=== PATIENT | female | born 1930 | race Hispanic/Latino ===

== ENCOUNTER 2018-05-22 11:52 | Observation (INO) | payer MEDICARE ==
[~2018-05-22] VITALS: Ht 162.6 cm; Wt 72.3 kg
[~2018-05-22 11:52] MED LIST: ACET650T24 PO; ALBUHFA IH; FLUT1BLS IH; FURO20TA4 PO; LOSA1TAB37 PO; METO50TA18 PO; PRAV20TA4 PO; PREG50 PO; RIVA20TA PO; TRAM50TA4 PO
[2018-05-22 13:12] LABS: EOSINOPHILS % (AUTO) 2.4 % (0.0-8.0); HEMATOCRIT 39.8 % (36-48); LYMPHOCYTES % (AUTO) 15.4 % (21.0-51.0); MEAN CORPUSCULAR HEMOGLOBIN 28.4 pg (27.0-33.0); MEAN CORPUSCULAR VOLUME 88.8 fL (79-99); MONOCYTES % (AUTO) 8.9 % (3.0-13.0); NEUTROPHILS % (AUTO) 72.3 % (40.0-77.0); NUCLEATED RED BLOOD CELLS 0.1 % (0.0-0.19); PLATELET COUNT (AUTO) 251 K/uL (130-400); RED BLOOD CELL COUNT(AUTO) 4.48 MIL/uL (4.00-5.50); RED CELL DISTRIBUTION WIDTH 14.4 % (11.0-15.5); WHITE BLOOD COUNT (AUTO) 6.9 K/uL (4.8-10.8)
[2018-05-22 13:24] LABS: CREATININE 1.1 mg/dL (0.5-1.5); POTASSIUM 4.2 mmol/L (3.5-5.1)
[2018-05-22 13:28] LABS: ALBUMIN 3.3 g/dL (3.5-5.0); BILIRUBIN,TOTAL 0.4 mg/dL (0.2-1.0)
[2018-05-22] MEDS ORDERED: ASPIRIN 325 MG TABLET ONE (14:52)
[2018-05-22] MEDS ORDERED: SODIUM CHLORIDE 0.9% 10 ML VIAL IVP PRN (15:00)
[2018-05-22] MEDS ORDERED: TRAM50TA4 PO (15:31)
[2018-05-22] MEDS ORDERED: ESCI5TAB PO (15:31)
[2018-05-22] MEDS ORDERED: MELA1TAB28 PO (15:34)
[2018-05-22] MEDS ORDERED: FOLI1TAB15 PO (15:35)
[2018-05-22] MEDS ORDERED: BUSP5TAB3 PO (15:35)
[2018-05-22] MEDS ORDERED: ALBU2.5V2 IH (15:37)
[2018-05-22] MEDS ORDERED: DICL2100G TP (15:39)
[2018-05-22] MEDS ORDERED: ROPI0.257 PO (15:41)
[2018-05-22] MEDS ORDERED: DiphenhydrAMINE HCL 50 MG/ML VIAL IV PRN (16:00)
[2018-05-22] MEDS ORDERED: LACTULOSE 20 GM/30 ML UDCUP PO PRN (16:00)
[2018-05-22] MEDS ORDERED: BUSPIRONE HCL 5 MG TABLET PO PRN (16:00)
[2018-05-22] MEDS ORDERED: DIPHENHYDRAMINE HCL 25 MG CAPSULE PO PRN (16:00)
[2018-05-22] MEDS ORDERED: MAG HYDROX/AL HYDROX/SIMETH ES 30 ML SUSP UDCUP PO PRN (16:00)
[2018-05-22] MEDS ORDERED: ACETAMINOPHEN 325 MG TAB PO PRN ×2 (16:00)
[2018-05-22] MEDS ORDERED: FUROSEMIDE 20 MG TABLET PO PRN (16:00)
[2018-05-22] MEDS ORDERED: ONDANSETRON HCL 4 MG/2 ML VIAL IV PRN (16:00)
[2018-05-22] MEDS ORDERED: ALBUTEROL SULFATE 0.083% 2.5 MG/3 ML INH IH PRN (16:00)
[2018-05-22] MEDS ORDERED: POTASSIUM CHLORIDE 10% ELIXIR 20 MEQ/15 ML UDCUP PO PRN (16:15)
[2018-05-22] MEDS ORDERED: LIDOCAINE HCL-MPF 1% 2ML VIAL IVP PRN (16:15)
[2018-05-22] MEDS ORDERED: POTASSIUM CHLORIDE 20 MEQ ERTAB PO PRN (16:15)
[2018-05-22] MEDS ORDERED: POTASSIUM CHLORIDE 20MEQ/100ML 100 ML IV PRN (16:15)
[2018-05-22] MEDS ORDERED: SIMVASTATIN 10 MG TABLET PO SCH (17:00)
--- NOTE | 2018-05-22 23:45 | NUR ---
Admission Assessment Received pt with daughter around, DX: Chest pain which per pt's daughter claimed brought the pt is quick as pt has a HX of MO a couple of years back. Routine admission assessment done, plan of care discuss made aware pt is pending Tiffanie scan stress test, so after MN NPO until further instructions. Pt currently denies any type of discomfort. All test & pending CE test explained to the pt's daughter. Due to dementia pt oriented to name,person, re-oriented to place/time.
[2018-05-23 00:10] VITALS: BP 130/58
[2018-05-23 00:38] LABS: CREATINE KINASE, TOTAL 135 U/L (21-232); MYOGLOBIN 59 ng/mL (10-92); TROPONIN I < 0.04 ng/mL (0.00-0.06)
[2018-05-23] MEDS: METOPROLOL TARTRATE 50 MG TAB PO SCH ×2 (02:46→17:02)
[2018-05-23] MEDS: NITROGLYCERIN 1GM/1 INCH PACKET TD SCH ×2 (02:53→18:44)
[2018-05-23 04:05] VITALS: BP 131/69
[2018-05-23 06:51] LABS: CREATINE KINASE, TOTAL 122 U/L (21-232); MYOGLOBIN 41 ng/mL (10-92); TROPONIN I < 0.04 ng/mL (0.00-0.06)
[2018-05-23 08:00] VITALS: BP 115/81
--- NOTE | 2018-05-23 08:00 | NUR ---
ASLEEP, DAUGHTER AT BEDSIDE AND STATES PT. DID NOT SLEEP LAST NIGHT, RESTLESS AND CONFUSED TO WHERE SHE WAS, STATES IS IN EARLY STAGE OF DEMENTIA.
[2018-05-23] MEDS ORDERED: RIVAROXABAN 20 MG TABLET PO SCH (09:00)
[2018-05-23] MEDS ORDERED: FOLIC ACID 1 MG TABLET PO SCH (09:00)
[2018-05-23] MEDS ORDERED: PANTOPRAZOLE SODIUM 40 MG TABLET.DR PO SCH (09:00)
[2018-05-23] MEDS ORDERED: LOSARTAN/HYDROCHLOROTHIAZIDE 50-12.5MG TABLET PO SCH (09:00)
[2018-05-23] MEDS ORDERED: ASPIRIN 325MG EC TAB 325 MG TABLET.DR PO SCH (09:00)
[2018-05-23] MEDS ORDERED: FLUTICASONE/VILANTEROL 1 EACH BLST.W.DEV IH SCH (09:00)
--- NOTE | 2018-05-23 09:10 | NUR ---
AM MEDICATION HELD THIS AM. NPO FOR ANA ROSA.
[2018-05-23 12:00] VITALS: BP 118/101
[2018-05-23] MEDS ORDERED: REGADENOSON 0.4 MG/5 ML PF SYG IVP STA (13:25)
[2018-05-23 16:00] VITALS: BP 157/86
--- NOTE | 2018-05-23 16:58 | NUR ---
DR. STEIN [facility] AND WILL BE ENTERING DISCHARGE ORDERS.
[2018-05-23] MEDS ORDERED: MELATONIN PO SCH (21:00)
[2018-05-23] MEDS ORDERED: PYRIDOXINE PO SCH (21:00)
--- NOTE | 2018-05-24 08:00 | NUR ---
LATE ENTRY. PT. DISCHARGED LAST NIGHT AFTER 8PM. NO NOTES ENTERED AT TIME OF DC PER PM NURSE, HOWEVER DC INST. WERE GIVEN BY ME EARLIER.
== END 2018-05-23 20:00 | disposition home or self-care (01) ==
LOC: EDH 11:52 → EDHIP 14:40 → 3AH 23:52
PROVIDERS: ADMIT Internal Medicine; ATTEND Internal Medicine
DX: R07.89 Other chest pain (principal); I25.10 Atherosclerotic heart disease of native coronary artery without angina pectoris; I13.0 Hypertensive heart and chronic kidney disease with heart failure and stage 1 through stage 4 chronic kidney disease, or unspecified chronic kidney disease; N18.2 Chronic kidney disease, stage 2 (mild); I50.32 Chronic diastolic (congestive) heart failure; I70.209 Unspecified atherosclerosis of native arteries of extremities, unspecified extremity; I48.2 Chronic atrial fibrillation; E66.9 Obesity, unspecified; G62.9 Polyneuropathy, unspecified; M85.80 Other specified disorders of bone density and structure, unspecified site; M51.9 Unspecified thoracic, thoracolumbar and lumbosacral intervertebral disc disorder; E78.2 Mixed hyperlipidemia; D68.69 Other thrombophilia; J44.9 Chronic obstructive pulmonary disease, unspecified; G89.29 Other chronic pain; I25.2 Old myocardial infarction; F03.91 Unspecified dementia, unspecified severity, with behavioral disturbance; F41.1 Generalized anxiety disorder; Z80.0 Family history of malignant neoplasm of digestive organs; Z80.49 Family history of malignant neoplasm of other genital organs; Z82.49 Family history of ischemic heart disease and other diseases of the circulatory system; Z95.5 Presence of coronary angioplasty implant and graft; Z79.01 Long term (current) use of anticoagulants; Z79.51 Long term (current) use of inhaled steroids; Z88.0 Allergy status to penicillin
CPT/HCPCS: 36415 ×2; 71045; 78452; 80053; 82550 ×2; 83874 ×2; 83880; 84484 ×3; 85025; 93005 ×2; 93017; 94664; 99284; A4510; A9500 ×2; G0378 ×29; 96374; J2785

== ENCOUNTER 2020-08-20 17:05 | Inpatient (IN) | payer MEDICARE ==
[~2020-08-20] VITALS: Ht 162.6 cm; Wt 74.6 kg
[~2020-08-20 17:05] MED LIST changes: -ACET650T24 PO; +ALBU2.5V2 IH; +BUSP5TAB3 PO; +DICL2100G TP; +ESCI5TAB PO; +FOLI1TAB15 PO; +MELA1TAB28 PO; -PREG50 PO; +ROPI0.257 PO
[2020-08-20] MEDS ORDERED: ASPIRIN 325 MG TABLET ONE (17:35)
[2020-08-20] MEDS ORDERED: NITROGLYCERIN 1GM OINT 1 INCH/1GM TD ONE (17:36)
[2020-08-20 17:55] LABS: BASOPHILS % (AUTO) 0.6 % (0.0-5.0); EOSINOPHILS % (AUTO) 1.8 % (0.0-8.0); HEMATOCRIT 44.9 % (36-48); MEAN CORPUSCULAR HEMOGLOBIN 28.2 pg (27.0-33.0); MEAN CORPUSCULAR HGB CONC 31.6 g/dL (32.0-36.0); MEAN CORPUSCULAR VOLUME 89.3 fL (79-99); MONOCYTES % (AUTO) 5.7 % (3.0-13.0); NEUTROPHILS % (AUTO) 80.4 % (40.0-77.0); PLATELET COUNT (AUTO) 260 K/uL (130-400); RED BLOOD CELL COUNT(AUTO) 5.03 MIL/uL (4.00-5.50); RED CELL DISTRIBUTION WIDTH 14.2 % (11.0-15.5); WHITE BLOOD COUNT (AUTO) 10.9 K/uL (4.8-10.8)
[2020-08-20 18:09] LABS: INR 1.03 (0.85-1.15); PROTHROMBIN TIME 11.2 SEC (9.6-11.6)
[2020-08-20 18:10] LABS: CREATININE 0.6 mg/dL (0.5-1.5); POTASSIUM 3.8 mmol/L (3.5-5.1)
[2020-08-20 18:11] LABS: PARTIAL THROMBOPLASTIN TIME 24.7 SEC (26.3-35.5)
[2020-08-20 18:13] LABS: ALBUMIN 3.9 g/dL (3.5-5.0); BILIRUBIN,TOTAL 0.6 mg/dL (0.2-1.0); TOTAL PROTEIN, SERUM 7.5 g/dL (6.0-8.3)
[2020-08-21] MEDS ORDERED: ENOXAPARIN SODIUM 80 MG/0.8 ML SQ ONE (04:03)
[2020-08-21] MEDS ORDERED: DICL4100G TP (08:39)
[2020-08-21] MEDS ORDERED: OMEP40CA21 PO (08:39)
[2020-08-21] MEDS ORDERED: POTA20PA32 PO (08:39)
[2020-08-21] MEDS ORDERED: VALS320T16 PO (08:39)
[2020-08-21] MEDS ORDERED: ALBUHFA IH (08:39)
[2020-08-21] MEDS ORDERED: TRAM50TA4 PO (08:39)
[2020-08-21] MEDS ORDERED: BUSP5TAB3 PO (08:39)
[2020-08-21] MEDS ORDERED: FURO40TA5 PO (08:39)
[2020-08-21] MEDS ORDERED: ROPI1TAB13 PO (08:39)
[2020-08-21] MEDS ORDERED: MIRT-72 PO (08:39)
[2020-08-21] MEDS ORDERED: LACT-69 PO (08:39)
[2020-08-21] MEDS ORDERED: ALBU2.5V2 IH (08:40)
[2020-08-21] MEDS: ENOXAPARIN SODIUM 80 MG/0.8 ML SQ SCH ×2 (09:00→20:41)
[2020-08-21] MEDS ORDERED: RIVA20TA PO (09:08)
[2020-08-21] MEDS ORDERED: TRAMADOL HCL 50 MG TABLET PO PRN (09:15)
[2020-08-21] MEDS ORDERED: DIPHENHYDRAMINE HCL 25 MG CAPSULE PO PRN (09:15)
[2020-08-21] MEDS ORDERED: KCL 20 MEQ ERTAB PO PRN (09:15)
[2020-08-21] MEDS ORDERED: ACETAMINOPHEN 325 MG TAB PO PRN ×2 (09:15)
[2020-08-21] MEDS ORDERED: POTASSIUM CHLORIDE 10% ELIXIR 20 MEQ/15 ML UDCUP PO PRN (09:15)
[2020-08-21] MEDS ORDERED: LIDOCAINE HCL-MPF 1% 2ML VIAL IJ PRN (09:15)
[2020-08-21] MEDS: 0.9%NACL 1000ML 1,000 ML IV SCH ×2 (09:15→20:34)
[2020-08-21] MEDS ORDERED: ONDANSETRON 4MG INJ IV PRN (09:15)
[2020-08-21] MEDS ORDERED: POTASSIUM CHLORIDE 20MEQ/100ML 100 ML IV PRN (09:15)
[2020-08-21] MEDS ORDERED: DiphenhydrAMINE HCL 50 MG/ML VIAL IV PRN (09:15)
[2020-08-21 16:00] VITALS: BP 127/73
[2020-08-21] MEDS: ATORVASTATIN 10 MG TABLET PO SCH (17:17)
[2020-08-21 20:05] VITALS: BP 105/66
[2020-08-21] MEDS: METOPROLOL TARTRATE 50 MG TAB PO SCH (20:34)
[2020-08-21 23:44] VITALS: BP 121/68
[2020-08-22 04:55] VITALS: BP 154/79
[2020-08-22 05:28] LABS: HEMATOCRIT 39.7 % (36-48); MEAN CORPUSCULAR HEMOGLOBIN 27.8 pg (27.0-33.0); MEAN CORPUSCULAR HGB CONC 31.7 g/dL (32.0-36.0); MEAN CORPUSCULAR VOLUME 87.6 fL (79-99); RED BLOOD CELL COUNT(AUTO) 4.53 MIL/uL (4.00-5.50); RED CELL DISTRIBUTION WIDTH 13.7 % (11.0-15.5); WHITE BLOOD COUNT (AUTO) 7.1 K/uL (4.8-10.8)
[2020-08-22 06:28] LABS: CREATININE 0.8 mg/dL (0.5-1.5); POTASSIUM 3.7 mmol/L (3.5-5.1)
[2020-08-22 08:59] VITALS: BP 139/85
[2020-08-22] MEDS: METOPROLOL TARTRATE 50 MG TAB PO SCH ×2 (09:24→20:21)
[2020-08-22] MEDS: LOSARTAN 100 MG TABLET PO SCH (09:24)
[2020-08-22] MEDS: RIVAROXABAN 20 MG TABLET PO SCH (09:24)
[2020-08-22] MEDS: PANTOPRAZOLE 40 MG TAB DR PO SCH (09:24)
[2020-08-22] MEDS: KCL 20 MEQ ERTAB PO SCH (09:25)
[2020-08-22 12:33] VITALS: BP 114/60
[2020-08-22] MEDS: 0.9%NACL 1000ML 1,000 ML IV SCH (13:33)
[2020-08-22 17:11] VITALS: BP 102/55
[2020-08-22] MEDS: ATORVASTATIN 10 MG TABLET PO SCH (17:39)
[2020-08-22 19:41] VITALS: BP 136/93
[2020-08-23 00:13] VITALS: BP 123/55
[2020-08-23 04:31] LABS: HEMATOCRIT 40.3 % (36-48); MEAN CORPUSCULAR HEMOGLOBIN 27.8 pg (27.0-33.0); MEAN CORPUSCULAR VOLUME 89.8 fL (79-99); PLATELET COUNT (AUTO) 231 K/uL (130-400); RED BLOOD CELL COUNT(AUTO) 4.49 MIL/uL (4.00-5.50); WHITE BLOOD COUNT (AUTO) 6.8 K/uL (4.8-10.8)
[2020-08-23 04:41] VITALS: BP 138/76
[2020-08-23 04:57] LABS: CREATININE 0.9 mg/dL (0.5-1.5); POTASSIUM 3.4 mmol/L (3.5-5.1)
[2020-08-23 07:00] VITALS: BP 123/77
[2020-08-23] MEDS: METOPROLOL TARTRATE 50 MG TAB PO SCH (08:41)
[2020-08-23] MEDS: RIVAROXABAN 20 MG TABLET PO SCH (08:41)
[2020-08-23] MEDS: PANTOPRAZOLE 40 MG TAB DR PO SCH (08:41)
[2020-08-23] MEDS: LOSARTAN 100 MG TABLET PO SCH (08:41)
[2020-08-23] MEDS: KCL 20 MEQ ERTAB PO SCH (08:42)
[2020-08-23] MEDS ORDERED: FUROSEMIDE 40 MG TABLET PO SCH (09:00)
[2020-08-23] MEDS ORDERED: POTA10CA44 PO (09:14)
[2020-08-23] MEDS ORDERED: ROSU5TAB12 PO (09:14)
== END 2020-08-23 10:50 | disposition home or self-care (01) | DRG 281 ==
LOC: EDH 17:05 → EDHIP 19:00 → OBSVTOIN 19:00 → INTOOBSV 19:00 → 4DH 08-21 16:33
PROVIDERS: ADMIT Internal Medicine; ATTEND Internal Medicine
DX: I21.4 Non-ST elevation (NSTEMI) myocardial infarction (principal); I50.32 Chronic diastolic (congestive) heart failure; I48.20 Chronic atrial fibrillation, unspecified; F03.91 Unspecified dementia, unspecified severity, with behavioral disturbance; I13.0 Hypertensive heart and chronic kidney disease with heart failure and stage 1 through stage 4 chronic kidney disease, or unspecified chronic kidney disease; F13.20 Sedative, hypnotic or anxiolytic dependence, uncomplicated; F11.20 Opioid dependence, uncomplicated; R13.10 Dysphagia, unspecified; M85.80 Other specified disorders of bone density and structure, unspecified site; M51.9 Unspecified thoracic, thoracolumbar and lumbosacral intervertebral disc disorder; G89.29 Other chronic pain; M15.9 Polyosteoarthritis, unspecified; E66.9 Obesity, unspecified; F41.1 Generalized anxiety disorder; G31.9 Degenerative disease of nervous system, unspecified; I70.203 Unspecified atherosclerosis of native arteries of extremities, bilateral legs; N18.30 Chronic kidney disease, stage 3 unspecified; Z95.5 Presence of coronary angioplasty implant and graft; Z82.49 Family history of ischemic heart disease and other diseases of the circulatory system; Z79.899 Other long term (current) drug therapy; Z79.01 Long term (current) use of anticoagulants; Z79.51 Long term (current) use of inhaled steroids; I25.2 Old myocardial infarction; Z98.49 Cataract extraction status, unspecified eye; Z88.0 Allergy status to penicillin; Z68.28 Body mass index [BMI] 28.0-28.9, adult; Z20.822 Contact with and (suspected) exposure to COVID-19; I25.10 Atherosclerotic heart disease of native coronary artery without angina pectoris
CPT/HCPCS: 36415; 71045; 80048; 80053; 82550; 84484; 85025; 85027; 85610; 85730; 87426; 93005; 97039; G0378; J1650